=== PATIENT | male | born 1960 | race Caucasian/White ===

== ENCOUNTER 2017-04-07 07:48 | Day surgery (SDC) | payer BC ==
[~2017-04-07] VITALS: Ht 180.3 cm; Wt 90.7 kg
[~2017-04-07 07:48] MED LIST: ALIGN PROBIOTIC; AMLODIPINE5 MG PO; BORAGE; ENSURE HIGH PROTEIN PO; FISH FLAX; GLUCOSAMINE PLUS MSM PO; HYZAAR1 TA1 PO; LOSARTAN POTASS1 TA2 PO; MULTI COMPLETE PO; VITAMIN C TR/R500 MG; [UNRECOGNIZED DRUG - OTHER]
[2017-04-07 09:50] VITALS: BP 116/74
== END 2017-04-07 10:05 | disposition home or self-care (01) | DRG 951 ==
LOC: ENDO 07:48
PROVIDERS: ATTEND Surgery
PROC: 0DJD8ZZ Inspection of Lower Intestinal Tract, Via Natural or Artificial Opening Endoscopic (ICD-10-PCS; principal; 2017-04-07)
DX: Z12.11 Encounter for screening for malignant neoplasm of colon (principal); K64.8 Other hemorrhoids; I10 Essential (primary) hypertension; Z86.010 Personal history of colon polyps

== ENCOUNTER 2018-06-08 06:31 | Day surgery (SDC) | payer BC ==
[~2018-06-08] VITALS: Ht 180.3 cm; Wt 86.2 kg
[~2018-06-08 06:31] MED LIST changes: +ASPIRIN81 MG PO; +METAMUCIL28 % PO; +MSM1500 MG PO; +VITAMI16 PO
[2018-06-08 08:33] VITALS: BP 112/78
== END 2018-06-08 08:45 | disposition home or self-care (01) | DRG 392 ==
LOC: ENDO 06:31
PROVIDERS: ATTEND Surgery
PROC: 0DB68ZX Excision of Stomach, Via Natural or Artificial Opening Endoscopic, Diagnostic (ICD-10-PCS; principal; 2018-06-08)
DX: K29.60 Other gastritis without bleeding (principal); K44.9 Diaphragmatic hernia without obstruction or gangrene

== ENCOUNTER 2023-11-29 06:54 | Day surgery (SDC) | payer OTHER ==
[~2023-11-29] VITALS: Ht 180.3 cm; Wt 90.7 kg
[2023-11-29] MEDS ORDERED: FAMOTIDINE 10MG/ML 2ML SDV IV ONE (07:45)
[2023-11-29] MEDS ORDERED: LACTATED RINGER'S 1,000 ML IV ONE (07:46)
[2023-11-29 09:52] VITALS: BP 102/76
[2023-11-29] MEDS ORDERED: PROPOFOL 500 MG/50 ML VIAL IV ONE (13:30)
[2023-11-29] MEDS ORDERED: LIDOCAINE HCL 2% 2ML SDV IV ONE (13:30)
[2023-11-29] MEDS ORDERED: GLYCOPYRROLATE 0.2 MG/ML IV ONE (13:30)
== END 2023-11-29 10:11 | disposition home or self-care (01) | DRG 951 ==
LOC: ORM 06:54
PROVIDERS: ATTEND Internal Medicine Gastroenterology
PROC: 0DBN8ZX Excision of Sigmoid Colon, Via Natural or Artificial Opening Endoscopic, Diagnostic (ICD-10-PCS; principal; 2023-11-29)
DX: Z12.11 Encounter for screening for malignant neoplasm of colon (principal); K63.5 Polyp of colon; K57.30 Diverticulosis of large intestine without perforation or abscess without bleeding; K64.8 Other hemorrhoids; I10 Essential (primary) hypertension; Z86.010 Personal history of colon polyps